=== PATIENT | female | born 1930 | race African-American/Black ===

== ENCOUNTER 2018-08-05 06:01 | Inpatient (IN) | payer MEDICARE, MEDICAID ==
[~2018-08-05] VITALS: Ht 165.1 cm; Wt 63.3 kg
[~2018-08-05 06:01] MED LIST: AMLO5TAB4 PO; ASPI-518 PO; ATEN-42 PO; IPRA3AMP9 HHN; LEVO75TA PO; LOSA50TA20 PO; MELO-106 PO; PROT40
[2018-08-05] MEDS ORDERED: METHYLPREDNISOLONE SOD SUCC 125 MG/2 ML VIAL IV STA (06:34)
[2018-08-05] MEDS ORDERED: IPRATROPIUM/ALBUTEROL 0.5-3(2.5)MG/3ML NEB HHN ONE (06:45)
[2018-08-05] MEDS ORDERED: FUROSEMIDE 40MG/4ML VIAL IV ONE (06:45)
[2018-08-05 07:22] LABS: EOSINOPHILS % 7.6 % (0.0-5.0); HEMATOCRIT. 36.1 % (36.0-48.0); HEMOGLOBIN. 11.2 g/dL (12.0-16.0); LYMPHOCYTES % 24.7 % (20.0-50.0); MEAN CORPUSCULAR HEMOGLOBIN 24.6 pg (28.0-32.0); MEAN CORPUSCULAR VOLUME 79.2 fL (81.0-99.0); MEAN PLATELET VOLUME 7.4 fl (7.4-10.4); NEUTROPHILS % 51.7 % (40.0-76.0); PLATELET 262 x1000/uL (130-400); RED BLOOD CELL COUNT 4.56 mill/uL (4.2-5.4); RED CELL DISTRIBUTION WIDTH 22.7 % (11.6-14.6)
[2018-08-05 07:30] LABS: CHLORIDE 109 mEq/L (98-107)
[2018-08-05 08:03] LABS: PLATELET ESTIMATE NORMAL
[2018-08-05 10:16] LABS: BG BASE EXCESS -5.9 mmol/L (-2.0-2.0); BG BILEVEL POS AIRWAY PRESSURE 15/5; BG DEOXYHEMOGLOBIN 0.6 % (0.0-5.0); BG FRACTION INSPIRED OXYGEN 60; BG HCO3 ACT 21.4 mmol/L (22.0-26.0); BG METHEMOGLOBIN 0.4 % (0.0-1.5); BG OXYGEN SATURATION 99.4 % (92.0-98.5); BG PCO2 49.2 mmHg (35.0-45.0); BG PH 7.257 (7.350-7.450); BG PO2 216.9 mmHg (75.0-100.0); BG SAMPLE SITE RIGHT BRACHIAL; BG TOTAL HEMOGLOBIN 14.2 g/dL (12.0-18.0); BG VENT MODE MASK - BIPAP; BG VENT RATE 20 set
[2018-08-05 11:00] VITALS: BP 104/75
[2018-08-05 12:00] VITALS: BP 97/65
[2018-08-05] MEDS ORDERED: PNEUMOCOCCAL 23-VAL P-SAC VAC 0.5 ML IM ONE (12:15)
[2018-08-05] MEDS ORDERED: INFLUENZA VIRUS VACCINE(AFLURIA) 0.5ML SYR IM ONE (12:15)
[2018-08-05 14:00] VITALS: BP 137/66
[2018-08-05] MEDS ORDERED: HYDROCODONE/ACETAMINOPHEN 5/325MG TABLET PO PRN (14:00)
[2018-08-05] MEDS ORDERED: DOCUSATE SODIUM 100MG CAPSULE PO PRN (14:00)
[2018-08-05] MEDS ORDERED: GUAIFENESIN 200MG/10ML SUGAR FREE UDC PO PRN (14:00)
[2018-08-05] MEDS ORDERED: ONDANSETRON HCL 4MG/2ML INJ IV PRN (14:00)
[2018-08-05] MEDS ORDERED: NA PHOS,M-B/NA PHOS,DI-BA ENEMA 118ML PR PRN (14:00)
[2018-08-05] MEDS ORDERED: MAGNESIUM/ALUMINUM HYDROXIDE/SIMETHICONE 30ML UDC PO PRN (14:00)
[2018-08-05] MEDS ORDERED: IPRATROPIUM/ALBUTEROL 0.5-3(2.5)MG/3ML NEB INH PRN ×2 (14:00)
[2018-08-05] MEDS ORDERED: DIPHENHYDRAMINE 50MG/ML VIAL IV PRN (14:00)
[2018-08-05] MEDS ORDERED: ACETAMINOPHEN 650MG SUPP PR PRN (14:00)
[2018-08-05] MEDS ORDERED: CLONIDINE 0.1MG TABLET PO PRN (14:00)
[2018-08-05] MEDS ORDERED: ACETAMINOPHEN 325MG TABLET PO PRN (14:00)
[2018-08-05] MEDS ORDERED: BUDESONIDE 0.5MG/2ML NEB HHN ONE (14:00)
[2018-08-05 15:35] LABS: BG BASE EXCESS -6.5 mmol/L (-2.0-2.0); BG CARBOXYHEMOGLOBIN 0.7 % (0.5-1.5); BG DEOXYHEMOGLOBIN 5.2 % (0.0-5.0); BG FRACTION INSPIRED OXYGEN 36; BG HCO3 ACT 20.2 mmol/L (22.0-26.0); BG METHEMOGLOBIN 0.4 % (0.0-1.5); BG OXYGEN SATURATION 94.7 % (92.0-98.5); BG OXYHEMOGLOBIN 93.7 % (94.0-97.0); BG PCO2 44.6 mmHg (35.0-45.0); BG PH 7.273 (7.350-7.450); BG PO2 79.9 mmHg (75.0-100.0); BG SAMPLE SITE RIGHT BRACHIAL; BG TOTAL HEMOGLOBIN 12.2 g/dL (12.0-18.0); BG VENT MODE NASAL CANNULA
[2018-08-05 16:00] VITALS: BP 98/64
[2018-08-05] MEDS: METHYLPREDNISOLONE SOD SUCC 40 MG/ML VIAL IV SCH ×2 (16:00→21:00)
[2018-08-05] MEDS ORDERED: LEVOFLOXACIN 500MG PREMIX 100 ML IV NR (16:00)
[2018-08-05] MEDS ORDERED: MIDODRINE HCL 5MG TABLET PO SCH (16:00)
[2018-08-05] MEDS: ENOXAPARIN 30MG/0.3ML SYR SUBCUT SCH (16:01)
[2018-08-05 16:49] LABS: CREATINE KINASE MB FRACTION 7.3 ng/mL (0.5-3.6)
[2018-08-05 18:00] VITALS: BP 124/86
[2018-08-05] MEDS: PIPERACILLIN/TAZ 2.25G PREMIX 50 ML IV SCH (18:12)
[2018-08-05] MEDS: MONTELUKAST SODIUM 10MG TABLET PO SCH (18:15)
[2018-08-05] MEDS ORDERED: VANCOMYCIN 1250MG in DEXTROSE 5% WATER 250ML IV SCH (20:00)
[2018-08-05] MEDS: FAMOTIDINE 20MG/2ML VIAL IV SCH (20:57)
[2018-08-05] MEDS: BUDESONIDE 0.5MG/2ML NEB HHN SCH (20:59)
[2018-08-05 23:45] LABS: CREATINE KINASE MB FRACTION 8.1 ng/mL (0.5-3.6)
[2018-08-06] VITALS (9 sets, daily range): BP systolic 42–140; BP diastolic 21–99
[2018-08-06] MEDS: PIPERACILLIN/TAZ 2.25G PREMIX 50 ML IV SCH ×4 (00:32→18:00)
[2018-08-06] MEDS: METHYLPREDNISOLONE SOD SUCC 40 MG/ML VIAL IV SCH ×2 (05:45→13:09)
[2018-08-06 06:54] LABS: BASOPHILS % 0.2 % (0.0-2.0); HEMATOCRIT. 36.9 % (36.0-48.0); HEMOGLOBIN. 11.3 g/dL (12.0-16.0); LYMPHOCYTES % 11.6 % (20.0-50.0); MEAN CORPUSCULAR HEMOGLOBIN 24.5 pg (28.0-32.0); MEAN PLATELET VOLUME 7.5 fl (7.4-10.4); MONOCYTES % 4.7 % (2.0-8.0); NEUTROPHILS % 83.5 % (40.0-76.0); PLATELET 272 x1000/uL (130-400); RED BLOOD CELL COUNT 4.62 mill/uL (4.2-5.4); RED CELL DISTRIBUTION WIDTH 22.9 % (11.6-14.6)
[2018-08-06 07:16] LABS: CHLORIDE 107 mEq/L (98-107)
[2018-08-06 07:26] LABS: HDL CHOLESTEROL 51 mg/dL (40-59); LDL CHOLESTEROL 83 mg/dL (5-100); T4 FREE 1.12 ng/dL (0.76-1.46)
[2018-08-06] MEDS: BUDESONIDE 0.5MG/2ML NEB HHN SCH ×2 (08:15→21:18)
[2018-08-06] MEDS: FAMOTIDINE 20MG/2ML VIAL IV SCH (08:43)
[2018-08-06] MEDS: MIDODRINE HCL 5MG TABLET PO SCH ×3 (08:45→17:00)
[2018-08-06] MEDS ORDERED: ASPIRIN 81MG EC TABLET PO SCH (09:00)
[2018-08-06] MEDS ORDERED: LORATADINE 10MG TABLET PO SCH (09:00)
[2018-08-06 10:04] LABS: BG BASE EXCESS -9.7 mmol/L (-2.0-2.0); BG CARBOXYHEMOGLOBIN 0.6 % (0.5-1.5); BG DEOXYHEMOGLOBIN 6.3 % (0.0-5.0); BG FRACTION INSPIRED OXYGEN 32; BG HCO3 ACT 16.9 mmol/L (22.0-26.0); BG METHEMOGLOBIN 0.4 % (0.0-1.5); BG OXYGEN SATURATION 93.6 % (92.0-98.5); BG OXYHEMOGLOBIN 92.7 % (94.0-97.0); BG PCO2 39.7 mmHg (35.0-45.0); BG PH 7.247 (7.350-7.450); BG PO2 77.9 mmHg (75.0-100.0); BG SAMPLE SITE RIGHT RADIAL; BG TOTAL HEMOGLOBIN 12.5 g/dL (12.0-18.0); BG VENT MODE NASAL CANNULA
[2018-08-06] MEDS ORDERED: SODIUM BICARBONATE 8.4% 1 MEQ/ML 50ML SYR IV NR ×3 (10:45→18:00)
[2018-08-06] MEDS ORDERED: ETOMIDATE 2MG/ML 10ML VIAL IV ONE (13:50)
[2018-08-06] MEDS ORDERED: VECURONIUM BROMIDE 10 MG/VIAL IV ONE (13:50)
[2018-08-06] MEDS: ENOXAPARIN 30MG/0.3ML SYR SUBCUT SCH (15:00)
[2018-08-06] MEDS ORDERED: ATROPINE SULFATE 0.1MG/ML 10ML DISP.SYRIN ONE ×2 (15:18→15:40)
[2018-08-06] MEDS ORDERED: DOPAMINE 400MG PREMIX 250 ML IV ONE (15:21)
[2018-08-06] MEDS ORDERED: CALCIUM CHLORIDE 1GM/10ML SYR IV ONE (15:21)
[2018-08-06] MEDS ORDERED: EPINEPHRINE 0.1MG/ML (1:10,000) 10ML SYR ONE (15:23)
[2018-08-06] MEDS ORDERED: MAGNESIUM SULFATE 4G IN WATER 100ML PREMIX IV ONE (15:23)
[2018-08-06] MEDS ORDERED: SODIUM BICARBONATE 8.4% 1 MEQ/ML 50ML SYR IV ONE (15:29)
[2018-08-06] MEDS ORDERED: LORAZEPAM 2MG/ML CPJ IV NR (15:30)
[2018-08-06] MEDS ORDERED: CALCIUM CHLORIDE 1GM/10ML SYR IV NR (15:30)
[2018-08-06] MEDS ORDERED: DOPAMINE 400MG PREMIX 250 ML IV PRN (15:30)
[2018-08-06] MEDS ORDERED: ATROPINE SULFATE 1MG/10ML SYR IV NR ×2 (15:30→15:45)
[2018-08-06] MEDS ORDERED: LEVOFLOXACIN 250MG PREMIX 50 ML IV SCH (16:00)
[2018-08-06] MEDS ORDERED: NOREPINEPHRINE 16 MG in DEXT 5% WATER 234 ML IV PRN (16:30)
[2018-08-06 16:57] LABS: BG CARBOXYHEMOGLOBIN 0.6 % (0.5-1.5); BG DEOXYHEMOGLOBIN 20.3 % (0.0-5.0); BG FRACTION INSPIRED OXYGEN 100; BG HCO3 ACT 15.6 mmol/L (22.0-26.0); BG METHEMOGLOBIN 0.4 % (0.0-1.5); BG OXYGEN SATURATION 79.5 % (92.0-98.5); BG OXYHEMOGLOBIN 78.7 % (94.0-97.0); BG PCO2 50.5 mmHg (35.0-45.0); BG PH 7.107 (7.350-7.450); BG PO2 56.1 mmHg (75.0-100.0); BG SAMPLE SITE RIGHT BRACHIAL; BG TIDAL VOLUME(mL) 500 mL; BG TOTAL HEMOGLOBIN 14.1 g/dL (12.0-18.0); BG VENT MODE VENT - A/C; BG VENT RATE 18 set
[2018-08-06 16:58] LABS: BASOPHILS % 0.3 % (0.0-2.0); EOSINOPHILS % 0.1 % (0.0-5.0); HEMATOCRIT. 42.9 % (36.0-48.0); HEMOGLOBIN. 12.8 g/dL (12.0-16.0); LYMPHOCYTES % 15.1 % (20.0-50.0); MEAN CORPUSCULAR HEMOGLOBIN 24.6 pg (28.0-32.0); MEAN CORPUSCULAR VOLUME 82.6 fL (81.0-99.0); MEAN PLATELET VOLUME 7.9 fl (7.4-10.4); MONOCYTES % 4.3 % (2.0-8.0); NEUTROPHILS % 80.2 % (40.0-76.0); PLATELET 264 x1000/uL (130-400); RED CELL DISTRIBUTION WIDTH 23.5 % (11.6-14.6)
[2018-08-06] MEDS: MONTELUKAST SODIUM 10MG TABLET PO SCH (17:00)
[2018-08-06 17:03] LABS: CHLORIDE 106 mEq/L (98-107)
[2018-08-06] MEDS ORDERED: VANCOMYCIN 1 G PREMIX 200 ML IV SCH (21:00)
[2018-08-07] MEDS ORDERED: FAMOTIDINE 20MG/2ML VIAL IV SCH (09:00)
== END 2018-08-06 21:20 | disposition expired | DRG 871 ==
LOC: ER 06:01 → 5EST 08:51 → ENRESERV 09:16
PROVIDERS: ADMIT Internal Medicine; ATTEND Internal Medicine
PROC: 5A09357 Assistance with Respiratory Ventilation, Less than 24 Consecutive Hours, Continuous Positive Airway Pressure (ICD-10-PCS; 2018-08-05)
PROC: 5A12012 Performance of Cardiac Output, Single, Manual (ICD-10-PCS; principal; 2018-08-06)
PROC: 5A09357 Assistance with Respiratory Ventilation, Less than 24 Consecutive Hours, Continuous Positive Airway Pressure (ICD-10-PCS; 2018-08-06)
PROC: 0BH17EZ Insertion of Endotracheal Airway into Trachea, Via Natural or Artificial Opening (ICD-10-PCS; 2018-08-06)
PROC: 5A1935Z Respiratory Ventilation, Less than 24 Consecutive Hours (ICD-10-PCS; 2018-08-06)
DX: A41.9 Sepsis, unspecified organism (principal); G93.41 Metabolic encephalopathy; I50.33 Acute on chronic diastolic (congestive) heart failure; J96.01 Acute respiratory failure with hypoxia; J69.0 Pneumonitis due to inhalation of food and vomit; D68.59 Other primary thrombophilia; J44.1 Chronic obstructive pulmonary disease with (acute) exacerbation; N17.9 Acute kidney failure, unspecified; N39.0 Urinary tract infection, site not specified; I46.9 Cardiac arrest, cause unspecified; Z66 Do not resuscitate; I95.9 Hypotension, unspecified; E03.9 Hypothyroidism, unspecified; E78.00 Pure hypercholesterolemia, unspecified; E78.5 Hyperlipidemia, unspecified; E87.5 Hyperkalemia; F03.90 Unspecified dementia, unspecified severity, without behavioral disturbance, psychotic disturbance, mood disturbance, and anxiety; I11.0 Hypertensive heart disease with heart failure; Z87.891 Personal history of nicotine dependence; Z90.710 Acquired absence of both cervix and uterus; Z99.81 Dependence on supplemental oxygen; Z79.82 Long term (current) use of aspirin; Z79.899 Other long term (current) drug therapy
CPT/HCPCS: 36415; 36600; 51702; 71045; 78580; 80061; 82375; 82550; 82553; 82805; 82962; 83880; 84439; 84443; 84484; 85379; 87804; 92610; 92950; 93005; 93306; 93970; 94002; 94640; 94660; 96374; 96375; 97163; 97530; 99291; J0461; J1265; J1650; J1940; J1956; J2543; J2920; J2930; J3370; J3475; J3490; J7040; J7050; J7060; J7620; J7626; A4315